=== PATIENT | female | born 1965 | race African-American/Black ===

== ENCOUNTER 2021-12-23 05:09 | Emergency (ER) | payer MEDICARE, MEDICAID ==
[~2021-12-23] VITALS: Ht 165.1 cm; Wt 90.9 kg
[~2021-12-23 05:09] MED LIST: ASPI-1450 PO; CARI350T PO; OXYC40TA50 PO
[2021-12-23] MEDS ORDERED: CETI5TAB14 PO (07:26)
[2021-12-23 07:27] LABS: GLUCOMETER DEV NAME(LOC) ERT.5; GLUCOSE,POINT OF CARE 109 MG/DL (70-110)
[2021-12-23 07:57] VITALS: BP 156/124
[2021-12-23] MEDS ORDERED: NALO4SPR NASAL (07:59)
[2021-12-23 08:01] LABS: COVID AG,FIA SOURCE NASAL SWAB
== END 2021-12-23 08:31 | disposition home or self-care (01) ==
LOC: EMS 05:09
DX: R40.4 Transient alteration of awareness (principal); R09.81 Nasal congestion; I10 Essential (primary) hypertension; Z88.8 Allergy status to other drugs, medicaments and biological substances; Z79.899 Other long term (current) drug therapy; Z79.82 Long term (current) use of aspirin; Z20.822 Contact with and (suspected) exposure to COVID-19
CPT/HCPCS: 82948; 82962; 99283

== ENCOUNTER 2023-02-15 17:52 | Emergency (ER) | payer MEDICARE, MEDICAID ==
[~2023-02-15] VITALS: Ht 165.1 cm; Wt 104.5 kg
[~2023-02-15 17:52] MED LIST changes: +CETI5TAB14 PO; +NALO4SPR NASAL
[2023-02-15 17:58] VITALS: TEMP 98.9
[2023-02-15 18:31] VITALS: BP 129/72; PULSE 91; RESP 18
[2023-02-15 18:56] LABS: GLUCOMETER DEV NAME(LOC) ER.6
[2023-02-15] MEDS ORDERED: CEPH-558 PO (19:31)
[2023-02-15] MEDS ORDERED: IBUP-1492 PO (19:31)
== END 2023-02-15 19:45 | disposition home or self-care (01) ==
LOC: EMS 17:52
DX: S01.81XA Laceration without foreign body of other part of head, initial encounter (principal); S63.511A Sprain of carpal joint of right wrist, initial encounter; E11.9 Type 2 diabetes mellitus without complications; I10 Essential (primary) hypertension; G89.29 Other chronic pain; M54.9 Dorsalgia, unspecified; Z98.890 Other specified postprocedural states; W19.XXXA Unspecified fall, initial encounter; Y93.89 Activity, other specified; Y92.89 Other specified places as the place of occurrence of the external cause; Y99.8 Other external cause status
CPT/HCPCS: 82948; 82962; 99283